=== PATIENT | male | born 1980 | race African-American/Black ===

== ENCOUNTER 2018-12-14 19:59 | Emergency (ER) | payer OTHER ==
[~2018-12-14] VITALS: Ht 180.3 cm; Wt 84.1 kg
[2018-12-14] MEDS ORDERED: PERTUSS(ACELL),DIPH,TET VAC/PF 0.5 ML VIAL IM ONE (20:45)
[2018-12-14] MEDS ORDERED: LIDOCAINE 1% 10 ML VIAL INJ ONE (20:45)
[2018-12-14] MEDS ORDERED: IBUPROFEN 600 MG TABLET PO ONE (21:15)
[2018-12-14] MEDS ORDERED: BACITRACIN 0.9 GM PACKET OINTMENT TP ONE (21:45)
[2018-12-14 22:01] VITALS: BP 128/68
== END 2018-12-14 22:21 | disposition home or self-care (01) ==
LOC: EMS 19:59
DX: S71.112A Laceration without foreign body, left thigh, initial encounter (principal); F17.210 Nicotine dependence, cigarettes, uncomplicated; W45.8XXA Other foreign body or object entering through skin, initial encounter; Y93.89 Activity, other specified; Y92.89 Other specified places as the place of occurrence of the external cause; Y99.0 Civilian activity done for income or pay
CPT/HCPCS: 12002; 90471; 90715; 99283; J3490